=== PATIENT | female | born 1980 | race Caucasian/White ===

== ENCOUNTER 2021-09-21 13:34 | Outpatient (CLI) | payer OTHER, SELFPAY ==
--- NOTE | 2021-09-21 14:00 | CRLHL7_ITS ---
For Patients: As a result of the Century Cures Act, medical imaging exams and procedure reports are released immediately into your electronic medical record. You may view this report before your referring provider. If you have questions, please contact your health care provider. BILATERAL SCREENING MAMMOGRAM WITH COMPUTER-AIDED DETECTION AND TOMOSYNTHESIS TECHNIQUE: CC and MLO views were obtained. These mammographic images have been obtained using full-field digital technique. These mammographic images were interpreted with the benefit of computer-aided detection. Breast Tomosynthesis was used in this interpretation. COMPARISON FILM: 01/19/18. FINDINGS: The breasts are heterogeneously dense, which may obscure small masses IMPRESSION: There is no radiographic evidence for malignancy. ASSESSMENT: BI-RADS Category 1: Negative RECOMMENDATION: Routine screening mammogram in 1 year. A lay language report of this examination will be provided to the patient. Judson Hansen M.D. Diagnostic Radiologist [email or web address] LEXA/Dictated by: Judson Hansen MD @ 09/22/2021 9:40:00 AM (Electronically Signed)
== END 2021-09-21 13:35 | disposition home or self-care (01) ==
LOC: MAMMO 13:36
PROVIDERS: Visit Provider Family Medicine
DX: Z12.31 Encounter for screening mammogram for malignant neoplasm of breast (principal)
CPT/HCPCS: 77063; 77067

== ENCOUNTER 2022-11-29 14:45 | Outpatient (CLI) | payer OTHER, SELFPAY | END 2022-11-29 14:46 | disposition home or self-care (01) | LOC: NFLDREF 12-02 21:16 | PROVIDERS: PCP Family Medicine; Referring Provider Family Medicine; Visit Provider Family Medicine | DX: R53.83 Other fatigue (principal); E78.5 Hyperlipidemia, unspecified; R73.01 Impaired fasting glucose | CPT/HCPCS: 80053; 80061 ==

== ENCOUNTER 2023-01-26 08:50 | Outpatient (CLI) | payer OTHER, SELFPAY | END 2023-01-26 08:51 | disposition home or self-care (01) | LOC: NFLDREF 15:24 | PROVIDERS: PCP Family Medicine; Referring Provider Family Medicine; Visit Provider Family Medicine | DX: R79.89 Other specified abnormal findings of blood chemistry (principal) | CPT/HCPCS: 80076 ==

== ENCOUNTER 2023-03-02 09:13 | Outpatient (CLI) | payer OTHER, SELFPAY ==
--- NOTE | 2023-03-02 09:15 | CRLHL7_ITS ---
For Patients: As a result of the Century Cures Act, medical imaging exams and procedure reports are released immediately into your electronic medical record. You may view this report before your referring provider. If you have questions, please contact your health care provider. BILATERAL SCREENING MAMMOGRAM WITH COMPUTER-AIDED DETECTION AND TOMOSYNTHESIS TECHNIQUE: CC and MLO views were obtained. These mammographic images have been obtained using full-field digital technique. These mammographic images were interpreted with the benefit of computer-aided detection. Breast Tomosynthesis was used in this interpretation. COMPARISON FILM: 09/21/21, 01/19/18. FINDINGS: There are scattered areas of fibroglandular density. IMPRESSION: There is no radiographic evidence for malignancy. ASSESSMENT: BI-RADS Category 1: Negative RECOMMENDATION: Routine screening mammogram in 1 year. A lay language report of this examination will be provided to the patient. Judson Hansen M.D. Diagnostic Radiologist [email or web address] SP/Dictated by: Judson Hansen MD @ 03/02/2023 11:30:00 AM (Electronically Signed)
--- OUTSIDE RECORDS SUMMARY | 2023-03-02 09:33 | XMS_ITS | Clinical Summary ---
Author Name Unknown Organization [facility] Address [place], [place] [address] Care Team Providers Care Tortilla Maker Name Role Phone Pcp, No Primary Care Provider Unavailabl e Allergies Active Allergy Reactions Criticality Noted Date Comments Peanut Anaphylaxis 07/11/2013 Medications Medication Sig Dispensed Refills Start Date End Date Status sertraline (ZOLOFT) 50 mg tablet Take 1 tablet by mouth once daily. 0 07/11/2013 Active Active Problems Problem Noted Date Diagnosed Date Foreign body of conjunctiva 07/11/2013 Encounters Date Type Department Care Team Description 12/08/2022 10:00 AM CDT Office Visit [facility] [place] [id number] [address] [id number] Chito William DPM Consult (Bilateral foot pain ) 12/08/2022 Travel 12/01/2022 Lab Requisition [facility] [phone] Yojana Moreno MD from Last 3 Months Social History Tobacco Use Types Packs/Day Years Used Date Smoking Tobacco: Never Smokeless Tobacco: Never Alcohol Use Standard Drinks/Week Comments Not Asked 0 (1 standard drink = 0.6 oz pur e alcohol) Sex and Gender Information Value Date Recorded Sex Assigned at Not on file Gender Identity Not on file Sexual Orientation Not on file Obstetrics History Last Filed Vital Signs Vital Sign Reading Time Taken Comments Blood Pressure 96/68 09/28/2017 8:55 AM CDT Pulse 84 12/08/2022 10:05 AM CDT Temperature - - Respiratory Rate - - Oxygen Saturation 97% 12/08/2022 10:05 AM CDT Inhaled Oxygen Concentration - - Weight 99.6 kg (219 lb 8 oz) 12/08/2022 10:05 AM CDT Height - - Body Mass Index - - Plan of Treatment Health Maintenance Due Date Last Done Comments COVID-19 vaccine series (#1) 1978 Tdap 1989 Depression screening for age 12+ 1990 HIV for age 15-65 1993 BMI (ht and wt on same day) for age 18+ 01/02/1996 Hepatitis C screening for age 18-79 01/02/1996 Tetanus booster 1998 Influenza for age 9-49 10/07/2022 Colonoscopy through age 75 2023 Lipids for age 45-75 2023 Mammogram for age 45-75 2023 Pap test for age 21-65 12/01/2025 , 12/01/2022, 01/22/2014, Additional history exists Pneumococcal series for age 6-64 Aged Out No longer eligible based on patient's age to complete this topic Procedures Procedure Name Priority Date/Time Associated Diagnosis Comments LAB TRACKING EVENT Routine 12/01/2022 7: 55 AM CDT TEXTILE COLORIST DYER THIN PREP PAP SCREEN IMAGED Routine 12/01/2022 7:55 AM CDT HPV THIN PREP Routine 12/01/2022 7:55 AM CDT from Last 3 Months Results * LAB TRACKING EVENT (12/01/2022 7:55 AM CDT) Other (Other) Client Collect / Unknown 12/01/2022 7:55 AM CDT 12/01/2022 5:57 PM CDT Yojana Moreno MD LAB BILL ONLY [facility] [address] [place] [address], * TEXTILE COLORIST DYER THIN PREP PAP SCREEN IMAGED (12/01/2022 7:55 AM CDT) Case Report Gynecologic Cytology Report ? Case: [id number] ? Authorizing Provider: ??Yojana Moreno MD ??Collected: ? 12/01/2022 0755 ? Ordering Location: ? [facility] ?Received: ?12/02/2022 1125 ? First Screen: ?Kami Salinas ? Specimen: ?TEXTILE COLORIST DYER ThinPrep Vial Screening, Cervical/Vaginal ? 12/08/2022 10:51 AM CDT [facility] INTERPRETATION/ RESULT NEGATIVE FOR INTRAEPITHELIAL LESION OR MALIGNANCY (NIL) (none) 12/08/2022 10:51 AM CDT [facility] IMEN ADEQUACY Satisfactory for evaluation Endocervical component present 12/08/2022 10:51 AM CDT [facility] HPV REQUEST HPV and PAP 12/08/2022 10:51 AM CDT [facility] Date of LMP 11/08/2022 12/08/2022 10:51 AM CDT [facility] Last Pap Date 01/22/2014 12/08/2022 10:51 AM CDT [facility] Last Pap Result NIL 10:51 AM CDT [facility] Abnormal Pap or [place] Bx in last 5 years No 12/08/2022 10:51 AM CDT [facility] Menstrual Status Regular Periods 12/08/2022 10:51 AM CDT [facility] [place] Bx Done Today No 12/08/2022 10:51 AM CDT [facility] Additional Information 12/08/2022 10:51 AM CDT [facility] Comment: Interpreted at [facility] - [address] [place] [id number] Automated Review Successful 12/08/2022 10:51 AM CDT [facility] Comment:Specimen processed s uccessfully by automated cosmetic counselor device, ThinPrep Imaging System, [employer] ANCILLARY TESTING TEXTILE COLORIST DYER HPV Ordered, Please see separate report 12/08/2022 10:51 AM CDT [facility] Note The pap test is a screening technique, not a diagnostic procedure. It is used primarily to screen for squamous cancers and precursor lesions. Published studies have shown that it is subject to both false negative and false positive results. The pap test should not be used as the sole means to diagnose or exclude pre-malignant and malignant lesions. 12/08/2022 10:51 AM CDT [facility] Other (Cervical/Vagina l) 12/01/2022 7:55 AM CDT 12/02/2022 11:25 AM CDT Yojana Moreno MD PATHOLOGY/[facility] [address] [place] [address], * HPV HIGH RISK (12/01/2022 7:55 AM CDT) TYPE 16 Negative Negative 12/06/2022 3:15 PM CDT [facility] TYPE 18 Negative Negative 12/06/2022 3:15 PM CDT [facility] OTHER HIGH RISK TYPES Negative Negative 12/06/2022 3:15 PM CDT [facility] Other (Cervical/Vagina l) 12/01/2022 7:55 AM CDT 12/02/2022 11:25 AM CDT Narrative [facility] - 12/06/2022 3:15 PM CDT HPV types 16, 18, 31, 33, 35, 39, 45, 51, 52, 56, 58, 59, 66 and 68 DNA were undetectable or below the pre-set threshold. Methodology: Citlalli Susan 4800 HPV Test Yojana Moreno MD MICROBIOLOGY [facility] [address] [place] [address], from Last 3 Months Care Teams Tortilla Maker Relationship Specialty Start Date End Date Pcp, No . PCP - General 09/28/17
== END 2023-03-02 09:14 | disposition home or self-care (01) ==
LOC: MAMMO 09:15
PROVIDERS: PCP Family Medicine; Visit Provider Family Medicine
DX: Z12.31 Encounter for screening mammogram for malignant neoplasm of breast (principal)
CPT/HCPCS: 77063; 77067

== ENCOUNTER 2024-06-03 07:39 | Outpatient (CLI) | payer OTHER, SELFPAY | END 2024-06-03 07:40 | disposition home or self-care (01) | LOC: NFLDREF 06-04 23:17 | PROVIDERS: PCP Family Medicine; Referring Provider Family Medicine; Visit Provider Family Medicine | DX: E78.5 Hyperlipidemia, unspecified (principal); R74.8 Abnormal levels of other serum enzymes; R79.89 Other specified abnormal findings of blood chemistry; E66.9 Obesity, unspecified; R73.01 Impaired fasting glucose | CPT/HCPCS: 80053; 80061; 82248; 82977 ==

== ENCOUNTER 2024-06-27 11:47 | Outpatient (CLI) | payer OTHER, SELFPAY ==
--- NOTE | 2024-06-27 12:51 | P.ANES_ITS ---
Anesthesia Charges Start Date/Time Anesthesia Start Date: 06/27/24 Anesthesia Start Time: 12:02 Stop Date/Time Anesthesia Stop Date: 06/27/24 Anesthesia Stop Time: 12:48 Coding CPT Codes CPT Codes: YOUNG LWR INTST NDSC NOS - 09411 ([id number]) P2 - PATIENT W/MILD SYST DISEASE, QX - MEDIA PLANNER SVC W/ MD MED DIRECTION, QK - MANAGER ARCHITECTURAL 2-4 CNCRNT ANES PROC
--- NOTE | 2024-06-27 12:51 | W.ANESCHARGE ---
Anesthesia Charges Start Date/Time Anesthesia Start Date: 06/27/24 Anesthesia Start Time: 12:02 Stop Date/Time Anesthesia Stop Date: 06/27/24 Anesthesia Stop Time: 12:48 Coding CPT Codes CPT Codes: YOUNG LWR INTST NDSC NOS - 25989 ([id number]) P2 - PATIENT W/MILD SYST DISEASE, QX - STRATEGIC BUSINESS DEVELOPMENT SVC W/ MD MED DIRECTION, QK - INDUSTRIAL CONTROLS TECHNICIAN 2-4 CNCRNT ANES PROC
--- NOTE | 2024-06-27 13:25 | P.ANES_ITS ---
Anesthesia Charges Start Date/Time Anesthesia Start Date: 06/27/24 Anesthesia Start Time: 12:02 Stop Date/Time Anesthesia Stop Date: 06/27/24 Anesthesia Stop Time: 12:48 Coding CPT Codes CPT Codes: YOUNG LWR INTST NDSC NOS - 00961 ([id number]) P2 - PATIENT W/MILD SYST DISEASE, QK - REMOTE PILOT OPERATOR 2-4 CNCRNT ANES PROC, QX - ENGINE BUILDER SVC W/ MD MED DIRECTION
--- NOTE | 2024-06-27 13:25 | W.ANESCHARGE ---
Anesthesia Charges Start Date/Time Anesthesia Start Date: 06/27/24 Anesthesia Start Time: 12:02 Stop Date/Time Anesthesia Stop Date: 06/27/24 Anesthesia Stop Time: 12:48 Coding CPT Codes CPT Codes: YOUNG LWR INTST NDSC NOS - 33488 ([id number]) P2 - PATIENT W/MILD SYST DISEASE, QK - MAJOR ASSEMBLY LINEMAN 2-4 CNCRNT ANES PROC, QX - LEAD PRESS OPERATOR SVC W/ MD MED DIRECTION
== END 2024-06-27 11:48 | disposition home or self-care (01) ==
LOC: OP CLINIC 11:48
PROVIDERS: PCP Family Medicine; Visit Provider Surgery
DX: Z12.11 Encounter for screening for malignant neoplasm of colon (principal); D12.2 Benign neoplasm of ascending colon
CPT/HCPCS: 00811; 00812; 45385; J2704

== ENCOUNTER 2024-09-13 09:03 | Outpatient (CLI) | payer OTHER, SELFPAY ==
--- NOTE | 2024-09-13 09:15 | CRLHL7_ITS ---
For Patients: As a result of the Century Cures Act, medical imaging exams and procedure reports are released immediately into your electronic medical record. You may view this report before your referring provider. If you have questions, please contact your health care provider. BILATERAL DIGITAL SCREENING MAMMOGRAM WITH COMPUTER-AIDED DETECTION AND TOMOSYNTHESIS CLINICAL HISTORY: Routine screening exam. COMPARISON: 03/02/2023, 09/21/2021.01/19/2018 TECHNIQUE: Digital mammogram in CC and MLO projections including computer-aided detection (CAD). Tomosynthesis was used in this interpretation. BREAST COMPOSITION: There are scattered areas of fibroglandular density. FINDINGS: RIGHT Breast: Focal asymmetric density in the upper-outer quadrant 6 cm from the nipple. LEFT Breast: No suspicious findings. IMPRESSION: RIGHT breast asymmetry/mass. RECOMMENDATIONS: Additional mammographic views of the RIGHT breast including 3D spot-compression CC/MLO. RIGHT breast ultrasound may also be required. The [facility] will contact the patient. A lay language report of this examination will be provided to the patient. BI-RADS Category 0: Incomplete: Need Additional Imaging Evaluation Dictated by Judson Hansen MD @ 09/16/2024 9:53:22 AM Dictated by: Judson Hansen MD @ 09/16/2024 09:53:27 (Electronically Signed)
== END 2024-09-13 09:04 | disposition home or self-care (01) ==
LOC: MAMMO 09:04
PROVIDERS: PCP Family Medicine; Visit Provider Family Medicine
DX: Z12.31 Encounter for screening mammogram for malignant neoplasm of breast (principal); N63.10 Unspecified lump in the right breast, unspecified quadrant
CPT/HCPCS: 77063; 77067

== ENCOUNTER 2024-10-01 09:30 | Outpatient (CLI) | payer OTHER, SELFPAY ==
--- NOTE | 2024-10-01 09:45 | CRLHL7_ITS ---
For Patients: As a result of the Century Cures Act, medical imaging exams and procedure reports are released immediately into your electronic medical record. You may view this report before your referring provider. If you have questions, please contact your health care provider. CLINICAL HISTORY: RIGHT breast mass/asymmetry. COMPARISON: 09/13/2024, 03/02/2023, 09/21/2021. TECHNIQUE: Digital RIGHT mammogram in 2 projections. Tomosynthesis was used in this interpretation. Real-time ultrasound imaging of RIGHT breast with imaging documentation. BREAST COMPOSITION: The breasts are heterogeneously dense, which may obscure small masses. FINDINGS: 3D spot compression CC/MLO RIGHT breast mammogram images submitted. Decreased conspicuity of previously noted asymmetric density. No architectural distortion or suspicious calcifications. Targeted RIGHT breast ultrasound performed at 9 o`clock 7 cm from the nipple. Normal dense fibroglandular tissue is present. No fibrocystic change or mass. IMPRESSION: No evidence of malignancy. RECOMMENDATIONS: Routine screening mammography. A lay language report of this examination will be provided to the patient. BI-RADS Category 2. Benign. Dictated by Judson Hansen MD @ 10/01/2024 11:32:03 AM BETHANY/maxim DW/Dictated by: Judson Hansen MD @ 10/01/2024 11:32:00 AM (Electronically Signed)
--- NOTE | 2024-10-01 10:15 | CRLHL7_ITS ---
For Patients: As a result of the Century Cures Act, medical imaging exams and procedure reports are released immediately into your electronic medical record. You may view this report before your referring provider. If you have questions, please contact your health care provider. Please see RIGHT breast diagnostic mammogram of same date for combined report. DM:maxim 10/01/2024 DW/Dictated by: Judson Hansen MD @ 10/01/2024 11:32:00 AM (Electronically Signed)
== END 2024-10-01 09:31 | disposition home or self-care (01) ==
LOC: MAMMO 09:30
PROVIDERS: PCP Family Medicine; Visit Provider Family Medicine
DX: N63.10 Unspecified lump in the right breast, unspecified quadrant (principal); R92.8 Other abnormal and inconclusive findings on diagnostic imaging of breast
CPT/HCPCS: 76642; 77065; G0279